=== PATIENT | male | born 1955 | race Caucasian/White ===

== ENCOUNTER 2022-08-10 07:56 | Outpatient (CLI) | payer MEDICARE, SELFPAY ==
--- NOTE | 2022-08-10 13:02 | WPDPFTINT ---
PFT Procedure Performed PFT Procedure Performed Spirometry with Pre/Post Bronchodilator Plethysmography (Lung Vol) Diffusing Cap (DLCO) Flow Vol Loop PFT Interpretation Lung volumes were measured with the body plethysmography method. The elevated RV could be due to air trapping. The remaining lung volumes are unremarkable. Spirometry showed diminished expiratory flow rates and a diminished FEV1 to FVC ratio of 65% consistent with obstructive airway disease. Following administration of a bronchodilator there was no significant increase in expiratory flow rates. Lung diffusion capacity is severely reduced at 36% predicted. The flow-volume loop is consistent with obstructive airway disease. Impression: Moderate obstructive airway disease with evidence of air trapping and no response to bronchodilators on this testing. Severely reduced lung diffusion capacity.
--- NOTE | 2022-08-10 13:15 | WPDSIXMINUTE ---
Six Minute Walk Procedure Procedure Performed Pulmonary Stress Test (6 min walk) Six Minute Walk Six Minute Walk: This 6 minute walk test was carried out with the patient breathing ambient air. The baseline pre-walk oxyhemoglobin saturation was 93%. The patient walked 274 m with no stops during testing. During the walk the oxyhemoglobin saturation remained in the range of 90% to 94%. Impression: No evidence of significant oxyhemoglobin desaturation on this testing.
== END 2022-08-10 07:57 | disposition home or self-care (01) ==
PROVIDERS: PCP Family Medicine; Visit Provider Internal Medicine Pulmonary Disease
DX: J44.9 Chronic obstructive pulmonary disease, unspecified (principal); Z87.891 Personal history of nicotine dependence; R94.2 Abnormal results of pulmonary function studies
CPT/HCPCS: 94060; 94618; 94726; 94729

== ENCOUNTER 2022-08-28 08:17 | Outpatient (CLI) | payer MEDICARE, SELFPAY ==
--- NOTE | 2022-09-18 14:00 | WPDSLEEPSTUD ---
Sleep Study Date of Study: 08/28/22 Ordering Provider: Eloy Che MD Interpreting Physician: Kathya Ramirez DO Sleep Study Type: Split Polysomnogram Height: 1.73 m Weight: 97.522 kg Body Mass Index: 32.6 Neck Circumference (inches): 18 [place]: 17 Reason for Sleep Study Loud snoring, daytime hypersomnia Sleep History The patient is a 67-year-old male with hypertension, anxiety, depression, GERD, COPD, renal cell carcinoma s/p nephrectomy in 2009 with mets to left arm and low back and history of tobacco use that had a sleep study ordered by his primary care for evaluation of sleep apnea. The patient is currently retired. He denies awakening from sleep short of breath. He denies awakening at night with heartburn, belching or cough. He frequently snores loudly enough that others complain. He occasionally has trouble sleeping when he has a cold. He denies waking up gasping for air throughout the night. He occasionally has breathing problems at night observed by himself or others. He rarely sweats excessively at night. He rarely has heart palpitations or irregular heartbeats during the night. He constantly falls asleep during the day but never while driving. He denies sleep paralysis and cataplexy. He frequently experiences vivid dreamlike scenes upon awakening or falling asleep. He denies feeling afraid of going to sleep. He rarely has nightmares. He denies remembering his dreams. He rarely has thoughts racing through his mind. He occasionally has anxiety. He denies feeling sad or depressed. He denies having muscular tension. He frequently notices parts of his body jerk. He frequently kicks during the night. He frequently has crawling and aching feelings in his legs and frequently has leg pain during the night. He rarely grinds his teeth during sleep and never awakens with morning jaw pain. He is frequently bothered by pain during the day and frequently awakened by pain during the night. He frequently wakes up feeling stiff in the morning. He constantly wakes up with sore or achy muscles. He constantly wakes up with pain in the neck, spine or other joints. He goes to bed at 11:00 p.m. on both weekdays and weekends. Sometimes he is unable to fall asleep. He typically wakes up 3 times throughout the night for unknown reasons. When he awakens, he will watch television. It can take him in our to fall back asleep. He wakes up between 5-7 a.m. on both weekdays and weekends. He typically gets 3-4 hours of sleep per night. He does not stay in bed after waking up in the morning. He currently lives with his . He does not consume any caffeinated beverages within 2 hours of bedtime. He does not engage in physical exercise before bedtime. He will watch television before falling asleep. He will take naps in the afternoon or the evening but they are not refreshing. The patient consumes 2-3 caffeinated beverages per day. He consumes 5 alcoholic beverages per day. He smokes a quarter pack of cigarettes per day. He denies recreational drug use. 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 Other Cerebrovascular accident Diabetes mellitus Family history of cardiovascular disease Social History Social History (Reviewed 09/18/22 @ 14:25 by Kathya
[2022-09-18 14:38] VITALS: BMI 32.6
--- NOTE | 2023-01-15 15:50 | SLEEP ---
new calls [id number]
== END 2022-08-29 07:45 | disposition home or self-care (01) ==
LOC: ANHCSM 08:19
PROVIDERS: PCP Family Medicine; Visit Provider Internal Medicine Pulmonary Disease
DX: G47.10 Hypersomnia, unspecified (principal); G47.33 Obstructive sleep apnea (adult) (pediatric)
CPT/HCPCS: 95811

== ENCOUNTER 2022-10-11 08:51 | Outpatient (CLI) | payer MEDICARE, SELFPAY ==
--- NOTE | 2022-10-11 08:55 | ECHO_ITS ---
Patient Info Name: Juan Antonio Bergeron Age: 67 years : 1955 Gender: Male Ht: 68 in Wt: 218 lbs BSA: 2.21 m2 HR: 89 bpm BP: 176 / 90 mmHg Technical Quality: Poor Exam Date: 10/11/2022 9:10 AM Exam Location: [facility] Patient Status: Outpatient Admit Date: 10/11/2022 Staff Ordering Physician: Amy Camarena MD Cutting Torch Operator: Miranda Cervantes RDCS Attending Provider: Amy Camarena MD Referring Physician: Migue LAMB; Exam Type: CA echo dop color flow w con Study Info Indications R07.9 - Chest pain, unspecified Complete two-dimensional, color flow and Doppler transthoracic echocardiogram is performed with contrast to opacify the left ventricle and to improve the deliniation of the left ventricle endocardial borders. Contrast/Agitated Saline Contrast/Ag. Saline: Definity Amount: 2.00 ml Administered By: Miranda Cervantes RDCS New IV Access: Antecubital Space and Right Site Condition: No extravasation, Site dressing applied and IV removed Reason for Poor Study: patient body habitus Summary 1. Technically suboptimal study due to poor sonographic images. 2. Definity contrast administered improved wall motion interpretation. 3. Left ventricular chamber dimension is normal. 4. Left ventricular systolic function is normal, estimated at 60-65%. 5. There is moderate concentric increased left ventricular wall thickness. 6. The left ventricular diastolic function is grade I diastolic dysfunction. 7. E/e' 12 is mildly elevated. 8. No pulmonary hypertension, estimated pulmonary arterial systolic pressure is 26 mmHg. Left Ventricle Technically suboptimal study due to poor sonographic images. Definity contrast administered improved wall motion interpretation. E/e' 12 is mildly elevated. Left ventricular chamber dimension is normal. Left ventricular systolic function is normal, estimated at 60-65%. There is moderate concentric increased left ventricular wall thickness. The left ventricular diastolic function is grade I diastolic dysfunction. Right Ventricle Right ventricular chamber dimension is not well visualized. Left Atria Left atrial chamber dimension is normal. Right Atria Right atrial chamber dimension is not well visualized. Aortic Valve The aortic valve is trileaflet. There is no aortic valve stenosis. There is no aortic valve regurgitation. Pulmonic Valve The pulmonic valve is not well visualized. Mitral Valve There is no mitral valve stenosis. There is no mitral valve regurgitation. Tricuspid Valve There is no tricuspid valve regurgitation. No pulmonary hypertension, estimated pulmonary arterial systolic pressure is 26 mmHg. Pericardium/Pleural There is no pericardial effusion. Inferior Vena Cava Inferior vena cava is not well visualized. Aorta The aortic root size at the sinus of Valsalva is normal. Left Ventricular Outflow Tract Name Value Normal LVOT 2D LVOT Diameter 1.99 cm LVOT Doppler LVOT Peak Gradient 6 mmHg LVOT Mean Gradient 4 mmHg LVOT VTI
[2022-10-11] MEDS: PERFLUTREN LIPID MICROSPHERES 1.5 ML VIAL DILUTED TO 10 ML TOTAL VOLUME IV PUSH (09:50)
== END 2022-10-11 08:52 | disposition home or self-care (01) ==
PROVIDERS: PCP Family Medicine; Visit Provider Internal Medicine Critical Care Medicine
DX: R07.9 Chest pain, unspecified (principal)
CPT/HCPCS: C8929; Q9957

== ENCOUNTER 2022-10-23 08:16 | Outpatient (CLI) | payer MEDICARE, SELFPAY ==
--- NOTE | 2022-11-17 18:11 | WPDSLEEPSTUD ---
Sleep Study Date of Study: 10/23/22 Ordering Provider: Ganesh Manzano APRN Interpreting Physician: Amy Camarena MD Sleep Study Type: ASV Height: 1.73 m Weight: 99.79 kg Body Mass Index: 33.4 Neck Circumference (inches): 20 [place]: 18 Reason for Sleep Study Central sleep apnea Sleep History Juan Antonio Bergeron is a 67-year-old male who has central sleep apnea. He comes for an ASV titration as his split night PSG 08/28/22 showed severe mixed sleep apnea with an overall AHI of 132 with desaturation down to 70%. The patient had 98 obstructive apneas, 51 central apneas, 151 mixed apneas and 3 hypopneas with no optimal CPAP or BPAP pressure found, even with using a backup rate.? He has hypertension, anxiety, depression, GERD, COPD, renal cell carcinoma s/p nephrectomy in 2009 with mets to left arm and low back with a history of tobacco use. The patient is currently retired.? He denies awakening from sleep short of breath.? He denies awakening at night with heartburn, belching or cough.? He frequently snores loudly enough that others complain.? He occasionally has trouble sleeping when he has a cold.? He denies waking up gasping for air throughout the night.? He occasionally has breathing problems at night observed by himself or others.? He rarely sweats excessively at night.? He rarely has heart palpitations or irregular heartbeats during the night.? He constantly falls asleep during the day but never while driving.? He denies sleep paralysis and cataplexy.? He frequently experiences vivid dreamlike scenes upon awakening or falling asleep.? He denies feeling afraid of going to sleep.? He rarely has nightmares.? He denies remembering his dreams.? He rarely has thoughts racing through his mind.? He occasionally has anxiety.? He denies feeling sad or depressed.? He denies having muscular tension.? He frequently notices parts of his body jerk.? He frequently kicks during the night.? He frequently has crawling and aching feelings in his legs and frequently has leg pain during the night.? He rarely grinds his teeth during sleep and never awakens with morning jaw pain.? He is frequently bothered by pain during the day and frequently awakened by pain during the night.? He frequently wakes up feeling stiff in the morning.? He constantly wakes up with sore or achy muscles.? He constantly wakes up with pain in the neck, spine or other joints.? He goes to bed at 11:00 p.m. on both weekdays and weekends.? Sometimes he is unable to fall asleep.? He typically wakes up 3 times throughout the night for unknown reasons.? When he awakens, he will watch television.? It can take him in our to fall back asleep.? He wakes up between 5-7 a.m. on both weekdays and weekends.? He typically gets 3-4 hours of sleep per night.? He does not stay in bed after waking up in the morning.? He currently lives with his .? He does not consume any caffeinated beverages within 2 hours of bedtime.? He does not engage in physical exercise before bedtime.? He will watch television before falling asleep.? He will take naps in the afternoon or the evening but they are not refreshing. The patient consumes 2-3 caffeinated beverages per day.? He consumes 5 alcoholic beverages per day.? He smokes a quarter pack of cigarettes per day.? He denies recreational substances. 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
[2022-11-17 20:27] VITALS: BMI 33.4
== END 2022-10-24 07:30 | disposition home or self-care (01) ==
LOC: ANHCSM 08:17
PROVIDERS: PCP Family Medicine; Visit Provider Nurse Practitioner Family
DX: R06.3 Periodic breathing (principal); G47.33 Obstructive sleep apnea (adult) (pediatric)
CPT/HCPCS: 95811

== ENCOUNTER 2024-12-30 22:13 | Emergency (ER) | payer MEDICARE, SELFPAY ==
[2024-12-30 22:34] VITALS: BP 111/71; PULSE 102; RESP 16; TEMP 36.8; O2SAT 93
== END 2024-12-30 22:40 | disposition left against medical advice (07) ==
PROVIDERS: PCP Nurse Practitioner Family
DX: R50.9 Fever, unspecified (principal)
CPT/HCPCS: 99199